=== PATIENT | female | born 1950 | race Asian ===

== ENCOUNTER 2017-01-25 17:40 | Emergency (ER) | payer SELFPAY ==
--- NOTE | 2017-01-25 17:43 | PDOC ---
History of Present Illness - General History Source: Patient Exam Limitations: No Limitations - History of Present Illness Initial Comments: 01/25/17 17:50 The patient is a 66 year old female, with a significant past medical history of diabetes, who presents to the ER with left wrist pain and swelling s/p slip and fall three hours ago. Patient reports slipping on wet floor outside earlier today. She states she is able to move her left hand. She states she applied ice to the region without complete relief of symptoms. Patient denies taking any pain medication. Denies paresthesia, weakness Denies decreased range of motion Denies dizziness, syncope Denies head or neck trauma <Uma Miguel - Last Filed: 01/25/17 17:55> <Bryn Eubanks - Last Filed: 01/25/17 18:21> - General Chief Complaint: Injury Stated Complaint: LEFT WRIST INJURY, S/P SLIP AND FALL Time Seen by Provider: 01/25/17 17:43 Past History <Uma Miguel - Last Filed: 01/25/17 17:55> <Bryn Eubanks - Last Filed: 01/25/17 18:21> - Past Medical History Allergies/Adverse Reactions: Allergies Allergy/AdvReac Type Severity Reaction Status Date / Time No Known Allergies Allergy Verified 01/25/17 17:43 Home Medications: Ambulatory Orders Blood Sugar Pill 1 tab PO BID 01/25/17 Review of Systems - Review of Systems Able to Perform ROS?: Yes Comments:: 01/25/17 17:52 GENERAL/CONSTITUTIONAL: No fever or chills. No weakness. HEAD, EYES, EARS, NOSE AND THROAT: No change in vision. No ear pain or discharge. No sore throat. CARDIOVASCULAR: No chest pain or shortness of breath. RESPIRATORY: No cough, wheezing, or hemoptysis. GASTROINTESTINAL: No nausea, vomiting, diarrhea or constipation. GENITOURINARY: No dysuria, frequency, or change in urination. MUSCULOSKELETAL: (+) Left wrist pain and swelling. No neck or back pain. SKIN: No rash NEUROLOGIC: No headache, vertigo, loss of consciousness, or change in strength/ sensation. ENDOCRINE: No increased thirst. No abnormal weight change. HEMATOLOGIC/LYMPHATIC: No anemia, easy bleeding, or history of blood clots. ALLERGIC/IMMUNOLOGIC: No hives or skin allergy. <Uma Miguel - Last Filed: 01/25/17 17:55> *Physical Exam - Vital Signs Last Vital Signs Temp Pulse Resp BP Pulse Ox 98.1 F 81 18 158/89 96 01/25/17 17:40 01/25/17 17:40 01/25/17 17:40 01/25/17 17:40 01/25/17 17:40 - Physical Exam Comments: 01/25/17 17:53 GENERAL: Awake, alert, and fully oriented, in no acute distress HEAD: No signs of trauma EYES: PERRLA, EOMI, sclera anicteric, conjunctiva clear ENT: Auricles normal inspection, hearing grossly normal, nares patent, oropharynx clear without exudates. Moist mucosa NECK: Normal ROM, supple, no lymphadenopathy, JVD, or masses LUNGS: Breath sounds equal, clear to auscultation bilaterally. No wheezes, and no crackles HEART: Regular rate and rhythm, normal S1 and S2, no murmurs, rubs or gallops ABDOMEN: Soft, nontender, normoactive bowel sounds. No guarding, no rebound. No masses EXTREMITIES: Left wrist tenderness and swelling. Neurovascularly intact. Normal range of motion. No clubbing or cyanosis. No cords, erythema. NEUROLOGICAL: Cranial nerves II through XII grossly intact. Normal speech, normal gait SKIN: Warm, Dry, normal turgor, no rashes or lesions noted. <Uma Miguel - Last Filed: 01/25/17 17:55> ED Treatment Course - ADDITIONAL ORDERS Additional order review: 01/25/17 18:19 x-ray left wrist, non displaced distal radial fracture Will place in splint, ice, Motrin, rest Will need Orthopedic follow up Pulses intact, no LOC Return to ER if worsens <Bryn Eubanks - Last Filed: 01/25/17 18:21> *DC/Admit/Observation/Transfer - Attestations Scribe Attestion: 01/25/17 17:54 Documentation prepared by Uma Miguel, acting as medical receptionist for Bryn Eubanks DO. <Uma Miguel - Last Filed: 01/25/17 17:55> - Discharge Dispostion Admit: No <Bryn Eubanks - Last Filed: 01/25/17 18:21> Diagnosis at time of Disposition: Fracture of distal end of left radius Qualifiers: Encounter type: initial encounter Fracture type: closed Fracture morphology: unspecified fracture morphology Qualified Code(s): S52.502A - Unspecified fracture of the lower end of left radius, initial encounter for closed fracture - Discharge Dispostion Disposition: HOME Condition at time of disposition: Stable - Referrals Referrals: Sukhjinder Morel MD [Staff Physician] - - Patient Instructions Printed Discharge Instructions: DI for Wrist Fracture Additional Instructions: Ice, Motrin, rest Splint Follow up with Orthopedics If worsen return to ER
[2017-01-25 18:00] VITALS: BP 158/89; PULSE 81; TEMP 98.1; BMI 25.2
== END 2017-01-25 18:27 | disposition home or self-care (01) ==
LOC: FER 17:40
PROC: 2W3FX1Z Immobilization of Left Hand using Splint (ICD-10-PCS; principal; 2017-01-25)
DX: S52.502A Unspecified fracture of the lower end of left radius, initial encounter for closed fracture (principal); W18.39XA Other fall on same level, initial encounter; Y93.9 Activity, unspecified; Y92.9 Unspecified place or not applicable; E11.9 Type 2 diabetes mellitus without complications
CPT/HCPCS: 73110-TC-LT; 99283-25